=== PATIENT | male | born 1990 | race Caucasian/White ===

== ENCOUNTER 2016-04-08 13:32 | Emergency (ER) | payer OTHER ==
[2016-04-08 13:38] VITALS: RESP 16; TEMP 97.9
[2016-04-08] MEDS ORDERED: NS 1,000 ML IV ONE (13:55)
[2016-04-08] MEDS ORDERED: ONDANSETRON 4 MG/2 ML VIAL IVP ONE (13:55)
--- NOTE | 2016-04-08 13:57 | EDPHY ---
H & P Stated Complaint: epigastric pain/nausea/fever Time Seen by Provider: 04/08/16 13:50 HPI/ROS: CHIEF COMPLAINT: Epigastric and right upper quadrant abdominal pain since this morning HISTORY OF PRESENT ILLNESS: 25-year-old male otherwise healthy no history of chronic abdominal pathology, abdominal surgeries, complaining epigastric, right upper quadrant abdominal pain, nausea without vomiting since this morning. No bowel movement yet today. Atraumatic. No rash. No heavy alcohol use this weekend (today is Friday). No radiation of pain. No dyspnea. No chest pain. No melena or hematochezia REVIEW OF SYSTEMS: A ten point review of systems was performed and is negative with the exception of the items mentioned in the HPI PAST MEDICAL & SURGICAL HISTORY: No pertinent medical or surgical history SOCIAL HISTORY: small amount of whiskey this weekend PHYSICAL EXAM (Prior to examination, patient consented to physical exam, hands were washed and my usual and customary physical exam procedures followed) 1) GENERAL: Well-developed, well-nourished, alert and oriented. Appears nontoxic 2) HEAD: Normocephalic, atraumatic 3) HEENT: Pupils equal, round, reactive to light bilaterally. Sclera anicteric. Nasopharynx, oropharynx, clear, no lesions. Moist mucous membranes 4) NECK: Full range of motion, no meningeal signs. 5) LUNGS: Clear auscultation bilaterally, no wheezes, no rhonchi, no retractions. 6) HEART: Regular rate and rhythm, no murmur, no heave, no gallop. 7) ABDOMEN: guarding epigastrium, tender to palpation epigastrium and right upper quadrant with positive Hou's, negative McBurney's,negative Rovsing's, negative peritoneal sign, 8) MUSCULOSKELETAL: Moving all extremities, no focal areas of tenderness, no obvious trauma. No peripheral edema or discoloration. 9) BACK: No CVA tenderness, no midline vertebral tenderness, no fluctuance, no step-off, no obvious trauma, no visual or palpable abnormality. 10) SKIN: [No rash, no petechiae. DIFFERENTIAL DIAGNOSIS: In no particular order, including but not limited to biliary colic, cholecystitis, peptic ulcer disease, pancreatitis, and gastroenteritis. This is a partial list of diagnoses considered. These considerations are based on history, physical exam, past history and reassessment. - Personal History Current Tetanus/Diphtheria Vaccine: No - Medical/Surgical History Hx Asthma: No Hx Chronic Respiratory Disease: No Hx Diabetes: No Hx Cardiac Disease: No Hx Renal Disease: No Hx Cirrhosis: No Hx Alcoholism: No Hx HIV/AIDS: No Hx Splenectomy or Spleen Trauma: No Other PMH: r shoulder surgery - Social History Smoking Status: Never smoked Constitutional: Initial Vital Signs Temperature (C) 36.6 C 04/08/16 13:36 Heart Rate 84 04/08/16 13:36 Respiratory Rate 16 04/08/16 13:36 Blood Pressure 139/72 H 04/08/16 13:36 O2 Sat (%) 94 04/08/16 13:36 O2 Delivery Mode Room Air Allergies/Adverse Reactions: No Known Allergies Allergy (Unverified 04/08/16 13:35) Home Medications: Medication Instructions Recorded Adderall 10 MG (*) 04/08/16 Ondansetron Odt [Zofran Odt] 4 mg PO Q4PRN PRN #10 tab 04/08/16 Pantoprazole Sodium [Protonix 40mg 40 mg PO DAILY #30 tab 04/08/16 (RX)] Medical Decision Making - Diagnostics Imaging: Right Upper Quadrant Abdominal Sonogram History: Possible gallstones, RUQ /epigastric pain Findings: There are no gallstones, gallbladder wall thickening or pericholecystic fluid. The liver , right kidney and common duct are normal. The pancreas is obscured by bowel gas. There is no ascites. The visualized aorta and IVC are normal. Impression: Normal gallbladder. Results discussed with HERMINIA Hassan. Dictated By: Arvind Walker MD Contrast Enhanced CT Scan of the Abdomen and Pelvis Clinical History: 25-year-old male complaining of epigastric and right upper quadrant abdominal pain initially and now complaining of mid-abdominal and right lower quadrant pain, and noted to have some nausea and a fever. Rule out appendicitis. Technique: No oral contrast was administered. After the uncomplicated intravenous administration of 90 mL of Isovue 300, a multidetector helical CT scan was obtained from the lung bases inferiorly through the proximal femora, with images reformatted at 5.00 and 1.25 mm increments, and reviewed at a variety of window and level settings. Parasagittal and paracoronal reconstructed images are reviewed on the workstation. The DFOV is 40.0 cm. Dose reduction techniques were utilized. Comparison Study: Sonography limited to the right upper quadrant of the abdomen , at 2:45 PM today. Findings: Contrast-Enhanced CT Scan of the Abdomen: The lung bases are clear. The visualized cardiac chambers and pericardium are unremarkable. The liver, gallbladder, bile ducts, pancreas, adrenal glands, and the kidneys are normal in appearance. The spleen is mildly enlarged , measuring 13.8 x 5.0 x 10.6 cm. The aorta tapers normally, and the IVC is normal in caliber. There is no ascites or free air. There is intraluminal fluid noted throughout the jejunum and into the proximal ileum ( query mild enteritis), and there is some "fecalization" of the distal small bowel, suggestive of slow transit. The CT appearance of large bowel is unremarkable. The retrocecal appendix is identified anterior to the right psoas muscle on series 3, images 197-221, and is normal. Contrast-Enhanced CT Scan of the Pelvis: There are no masses, free fluid, or free air. The bladder has a normal contour. There is normal enhancement of the vasculature. The soft tissues are normal in appearance. The prostate gland and seminal vesicles are normal. Skeletal System: Normal. Impression: 1. Mild splenomegaly. 2. Query mild small bowel enteritis. 3. Normal CT appearance of the appendix. Results were discussed with Elijah Navarro PA-C. A Downtime test result has been communicated via the [facility] Critical Result system on 16:55, Message ID [id number]. Dictated By: Joshua Mejia MD Images reviewed by myself ED Course/Re-evaluation: 4:09 p.m.: Re-evaluation. Complaining of continued pain in the epigastrium. 540 p.m. Re-evaluation, discussed his imaging results. He is feeling improvement in symptoms. He has normal appearing appendix. He is noted to have mild splenomegaly with a positive Monospot. I do not think that further emergent intervention or evaluation indicated for his splenomegaly however I did recommend follow up with GI and his primary care provider and also recommend he avoid contact activities and sports. Also discussed mononucleosis precautions. Doubt acute surgical abdominal pathology. Doubt Acute pancreatitis. Doubt acute cholecystitis. Doubt Acute appendicitis. Doubt bowel obstruction. - Data Points Laboratory Results: Laboratory Results 04/08/16 14:05 04/08/16 14:05 04/08/16 04/08/16 04/08/16 14:05 14:05 14:05 WBC 7.33 10^3/uL 10^3/uL (3.80-9.50) RBC 5.29 10^6/uL 10^6/uL (4.40-6.38) Hgb 16.3 g/dL g/dL (13.7-17.5) Hct 45.6 % % (40.0-51.0) MCV 86.2 fL fL (81.5-99.8) MCH 30.8 pg pg (27.9-34.1) MCHC 35.7 g/dL g/dL (32.4-36.7) RDW 12.0 % % (11.5-15.2) Plt Count 202 10^3/uL 10^3/uL (150-400) MPV 10.3 fL fL (8.7-11.7) Neut % (Auto) 65.3 % % (39.3-74.2) Lymph % (Auto) 19.0 % % (15.0-45.0) [place] % (Auto) 14.3 % H % (4.5-13.0) Eos % (Auto) 0.8 % % (0.6-7.6) Baso % (Auto) 0.3 % % (0.3-1.7) Nucleat RBC Rel Count 0.0 % % (0.0-0.2) Absolute Neuts (auto) 4.79 10^3/uL 10^3/uL (1.70-6.50) Absolute Lymphs (auto) 1.39 10^3/uL 10^3/uL (1.00-3.00) Absolute Monos (auto) 1.05 10^3/uL H 10^3/uL (0.30-0.80) Absolute Eos (auto) 0.06 10^3/uL 10^3/uL (0.03-0.40) Absolute Basos (auto) 0.02 10^3/uL 10^3/uL (0.02-0.10) Absolute Nucleated RBC 0.00 10^3/uL 10^3/uL (0-0.01) Immature Gran % 0.3 % % (0.0-1.1) Immature Gran # 0.02 10^3/uL 10^3/uL (0.00-0.10) Sodium 139 mEq/L mEq/L (134-144) Potassium 4.1 mEq/L mEq/L (3.5-5.2) Chloride 100 mEq/L mEq/L (97-110) Carbon Dioxide 26 mEq/l mEq/l (22-31) Anion Gap 13 mEq/L mEq/L (8-16) BUN 13 mg/dL mg/dL (7-23) Creatinine 0.9 mg/dL mg/dL (0.7-1.3) Estimated GFR > 60 Glucose 79 mg/dL mg/dL (70-100) Calcium 9.9 mg/dL mg/dL (8.5-10.4) Total Bilirubin 0.9 mg/dL mg/dL (0.1-1.4) Conjugated Bilirubin 0.3 mg/dL mg/dL (0.0-0.5) Unconjugated Bilirubin 0.6 mg/dL mg/dL (0.0-1.1) AST 84 IU/L H IU/L (17-59) ALT 60 IU/L IU/L (21-72) Alkaline Phosphatase 109 IU/L IU/L (38-126) Total Protein 8.0 g/dL g/dL (6.3-8.2) Albumin 4.7 g/dL g/dL (3.5-5.0) Lipase 64.0 IU/L IU/L (23-300) Monoscreen POSITIVE H (NEGATIVE) Medications Given: Discontinued Medications Fentanyl (Sublimaze) 75 mcg IVP EDNOW ONE Stop: 04/08/16 16:10 Last Admin: 04/08/16 16:21 Dose: 75 mcg Sodium Chloride (Ns) 1,000 mls @ 0 mls/hr IV ONCE ONE PRN Reason: Wide Open Stop: 04/08/16 13:56 Last Admin: 04/08/16 14:09 Dose: 1,000 mls Ketorolac Tromethamine (Toradol) 30 mg IVP EDNOW ONE Stop: 04/08/16 16:10 Last Admin: 04/08/16 16:21 Dose: 30 mg Miscellaneous Medication (Gi Cocktail) 45 ml PO EDNOW ONE Stop: 04/08/16 15:22 Last Admin: 04/08/16 15:25 Dose: 45 ml Ondansetron HCl (Zofran) 4 mg IVP EDNOW ONE Stop: 04/08/16 13:56 Last Admin: 04/08/16 14:09 Dose: 4 mg Departure - Departure Disposition: Home, Routine, Self-Care Clinical Impression: Splenomegaly Abdominal pain Qualifiers: Abdominal location: epigastric Qualified Code(s): R10.13 - Epigastric pain Condition: Good Instructions: Abdominal Pain (ED) Additional Instructions: Seek immediate medical attention if you develop new or worsening symptoms, if you develop fevers, chills, inability to tolerate oral intake or any other symptoms that concerns you. If your abdominal pain continues in 24 hours return to the ER Referrals: Marcelino Linton MD [Medical Doctor] - 5-7 days, call for appt. Prescriptions: Ondansetron Odt [Zofran Odt] 4 mg PO Q4PRN PRN #10 tab PRN Reason: Nausea Pantoprazole Sodium [Protonix 40mg (RX)] 40 mg PO DAILY #30 tab
[2016-04-08 14:24] LABS: % IMMATURE GRANULYOCYTES 0.3 % (0.0-1.1); ABSOLUTE IMMATURE GRANULOCYTES 0.02 10^3/uL (0.00-0.10); ADD DIFF? NO; ADD MORPH? NO; ADD SCAN? NO; ATYPICAL LYMPHOCYTE FLAG 40 (0-99); FRAGMENT RBC FLAG 0 (0-99); HEMATOCRIT 45.6 % (40.0-51.0); HEMOGLOBIN 16.3 g/dL (13.7-17.5); LEFT SHIFT FLG 0 (0-99); LIPEMIA HEMOLYSIS FLAG 90 (0-99); MEAN CELL HEMOGLOBIN 30.8 pg (27.9-34.1); MEAN CELL HEMOGLOBIN CONCENTR. 35.7 g/dL (32.4-36.7); MEAN CELL VOLUME 86.2 fL (81.5-99.8); MEAN PLATELET VOLUME 10.3 fL (8.7-11.7); PLATELET CLUMPS FLAG 10 (0-99); PLATELET COUNT 202 10^3/uL (150-400); RED BLOOD CELL COUNT 5.29 10^6/uL (4.40-6.38)
[2016-04-08 15:03] LABS: ALANINE AMINOTRANSFERASE 60 IU/L (21-72); ALBUMIN 4.7 g/dL (3.5-5.0); ALKALINE PHOSPHATASE 109 IU/L (38-126); ANION GAP 13 mEq/L (8-16); ASPARTATE AMINOTRANSFERASE 84 IU/L (17-59); BILIRUBIN,TOTAL 0.9 mg/dL (0.1-1.4); BILIRUBIN-CONJUGATED 0.3 mg/dL (0.0-0.5); BILIRUBIN-UNCONJUGATED 0.6 mg/dL (0.0-1.1); CALCIUM 9.9 mg/dL (8.5-10.4); CARBON DIOXIDE 26 mEq/l (22-31); CHLORIDE 100 mEq/L (97-110); CREATININE 0.9 mg/dL (0.7-1.3); GLOMERULAR FILTRATION RATE > 60; GLUCOSE 79 mg/dL (70-100); POTASSIUM 4.1 mEq/L (3.5-5.2); SODIUM 139 mEq/L (134-144)
[2016-04-08] MEDS ORDERED: MAALOX/LIDO/HYOSC GI COCKTAIL 55 ML BOTTLE PO ONE (15:21)
[2016-04-08] MEDS ORDERED: fentaNYL 100 MCG/2 ML INJ IVP ONE (16:09)
[2016-04-08] MEDS ORDERED: KETOROLAC 30 MG/1 ML SDV IVP ONE (16:09)
[2016-04-08] MEDS ORDERED: IOPAMIDOL (ISOVUE-300) 100 ML BTL IV ONE (16:18)
[2016-04-08 17:52] VITALS: BP 122/61; PULSE 88; O2SAT 97
== END 2016-04-08 17:52 | disposition home or self-care (01) ==
DX: R16.1 Splenomegaly, not elsewhere classified (principal)
CPT/HCPCS: 96374; J1885; J2405; J3010; Q9967

== ENCOUNTER 2016-04-10 14:48 | Emergency (ER) | payer OTHER ==
--- NOTE | 2016-04-10 15:08 | EDPHY ---
H & P Stated Complaint: epigastric pain/seen 2 days ago/rx protonix/hasn't filled rx yet HPI/ROS: HPI CHIEF COMPLAINT: Sharp stabbing epigastric abdominal pain HISTORY OF PRESENT ILLNESS: This patient very pleasant 25-year-old male, seen here on Friday for epigastric abdominal pain sharp in nature had a ultrasound and CT scan and blood work at that time that only showed mild splenomegaly. Patient presents back to the emergency room with epigastric sharp stabbing pain. Patient tells me that the pain is located in the epigastric region sharp stabbing constant since 7:00 a.m. Friday morning. Patient denies black tarry stools or vomiting blood. He states the pain is exquisitely worse after eating and drinking he states when he takes a drink of water he gets severe epigastric sharp stabbing pain. At times it radiates directly to his back. He has not had any vomiting. He denies feeling nauseous, denies chest pain or shortness of breath, the pain is not worse when he takes deep breath in. Past Medical History: Denies any significant medical history Past Surgical History:Shoulder surgery Social History: denies daily use of drugs alcohol tobacco products Family History: Noncontributory ROS REVIEW OF SYSTEMS: A comprehensive 10 point review of systems is otherwise negative aside from elements mentioned in the history of present illness. Exam Constitutional triage nursing summary reviewed, vital signs reviewed, awake/ alert. Eyes normal conjunctivae and sclera, EOMI, PERRLA. HENT normal inspection, atraumatic, moist mucus membranes, no epistaxis, neck supple/ no meningismus, no raccoon eyes. Respiratory clear to auscultation bilaterally, normal breath sounds, no respiratory distress, no wheezing. Cardiovascular rate normal, regular rhythm, no murmur, no edema, distal pulses normal. Gastrointestinal soft, mild tenderness palpation epigastric and right upper quadrant , no rebound, no guarding, normal bowel sounds, no distension, no pulsatile mass. Genitourinary no CVA tenderness. Musculoskeletal no midline vertebral tenderness, full range of motion, no calf swelling, no tenderness of extremities, no meningismus, good pulses, neurovascularly intact. Skin pink, warm, & dry, no rash, skin atraumatic. Neurologic awake, alert and oriented x 3, AAOx3, moves all 4 extremities equally, motor intact, sensory intact, CN II-XII intact, normal cerebellar, normal vision, normal speech. Psychiatric normal mood/affect. Heme/Lymph/Immune no lymphadenopathy. Differential Diagnosis: includes but is not limited to in a particular order, peptic ulcer disease, per peptic ulcer, gallbladder disease, pancreatitis, esophagitis, pancreatitis, gastritis, referred pain from acute lower abdominal process. Medical Decision Making:This patient appears well here nontoxic does have tenderness to palpation epigastric and right upper quadrant, denies sharp stabbing pain epigastric radiating to the back. Will start off with GI cocktail IV Protonix will have an upper a chest x-ray to make sure there is no free air under the diaphragm IV hydration and blood work and re-evaluate him. Re-evaluation: ED x-ray chest one view upright: negative for acute cardiopulmonary disease. No free air underneath the diaphragm visualized. 1622: Re-examination at this time patient: Patient is still having ongoing epigastric pain sharp stabbing. He tells me the GI cocktail did not improve his pain nor did the IV Pepcid. He finished 2 L fluid I have written him another L fluid will perform a CT scan abdomen pelvis with IV contrast to evaluate for further significant epigastric abdominal pain specifically perfect ulcer. I have also ordered him IV Dilaudid IV Zofran for pain control. Time of re-evaluation: 165 The patient is resting comfortably here, patient feels much better after IV Dilaudid. Patient is back from CT scan at this time. CT scan of the abdomen pelvis with IV contrast The results of the study are shows nothing acute specifically no evidence of free air, per ulcer, duodenitis or significant inflammation epigastric right upper quadrant region. Mild splenomegaly.. The study was read by Dr. Harp. I viewed the images myself on the PACS system. 1722:Time of re-evaluation: The patient is resting comfortably here, this time patient is resting comfortably no acute distress. Re-examination abdomen is soft nontender no guarding or peritoneal signs patient is not vomiting p.o. challenge well without difficulty he feels comfortable going home. CT scan and blood work reviewed shows nothing acute. I do feel that this patient's symptoms are most likely consistent with an ulcer an H pylori possibly. I do recommend he follows up with Gastroenterology. He has not got his Protonix prescription filled I do recommend that he get this filled he stays away from spicy fatty greasy foods. I went over this with him. I also went over strict return precautions he understands to return to the emergency room if develops worsening abdominal pain, fever, vomiting. Blood in his stool doctor in stools or vomit blood. He should follow up with Gastroenterology for EGD. Most likely has a ulcer. Take Protonix. I will give him a limited prescription for Zofran and [place]. Source: Patient - Personal History Current Tetanus/Diphtheria Vaccine: No - Medical/Surgical History Hx Asthma: No Hx Chronic Respiratory Disease: No Hx Diabetes: No Hx Cardiac Disease: No Hx Renal Disease: No Hx Cirrhosis: No Hx Alcoholism: No Hx HIV/AIDS: No Hx Splenectomy or Spleen Trauma: No Other PMH: r shoulder surgery - Social History Smoking Status: Never smoked Constitutional: Initial Vital Signs Temperature (C) 36.6 C 04/10/16 14:51 Heart Rate 76 04/10/16 14:51 Respiratory Rate 18 04/10/16 14:51 Blood Pressure 124/77 H 04/10/16 14:51 O2 Sat (%) 96 04/10/16 14:51 O2 Delivery Mode Room Air O2 (L/minute) 2 Allergies/Adverse Reactions: No Known Allergies Allergy (Verified 04/10/16 14:50) Home Medications: Medication Instructions Recorded Adderall 10 MG (*) 04/08/16 Ondansetron Odt [Zofran Odt] 4 mg PO Q4PRN PRN #10 tab 04/08/16 Pantoprazole Sodium [Protonix 40mg 40 mg PO DAILY #30 tab 04/08/16 (RX)] Hydrocodone/APAP 5/325 [[place] 1 - 2 tab PO Q4H PRN #10 tab 04/10/16 5/325] Ondansetron HCl [Zofran] 4 mg PO Q4-6PRN PRN #10 tablet 04/10/16 Medical Decision Making - Data Points Laboratory Results: Laboratory Results 04/10/16 15:42 04/10/16 15:42 04/10/16 04/10/16 15:42 15:42 WBC 6.93 10^3/uL 10^3/uL (3.80-9.50) RBC 4.88 10^6/uL 10^6/uL (4.40-6.38) Hgb 14.8 g/dL g/dL (13.7-17.5) Hct 41.9 % % (40.0-51.0) MCV 85.9 fL fL (81.5-99.8) MCH 30.3 pg pg (27.9-34.1) MCHC 35.3 g/dL g/dL (32.4-36.7) RDW 11.9 % % (11.5-15.2) Plt Count 207 10^3/uL 10^3/uL (150-400) MPV 10.3 fL fL (8.7-11.7) Neut % (Auto) 67.8 % % (39.3-74.2) Lymph % (Auto) 18.8 % % (15.0-45.0) [place] % (Auto) 11.4 % % (4.5-13.0) Eos % (Auto) 1.4 % % (0.6-7.6) Baso % (Auto) 0.3 % % (0.3-1.7) Nucleat RBC Rel Count 0.0 % % (0.0-0.2) Absolute Neuts (auto) 4.70 10^3/uL 10^3/uL (1.70-6.50) Absolute Lymphs (auto) 1.30 10^3/uL 10^3/uL (1.00-3.00) Absolute Monos (auto) 0.79 10^3/uL 10^3/uL (0.30-0.80) Absolute Eos (auto) 0.10 10^3/uL 10^3/uL (0.03-0.40) Absolute Basos (auto) 0.02 10^3/uL 10^3/uL (0.02-0.10) Absolute Nucleated RBC 0.00 10^3/uL 10^3/uL (0-0.01) Immature Gran % 0.3 % % (0.0-1.1) Immature Gran # 0.02 10^3/uL 10^3/uL (0.00-0.10) Sodium 141 mEq/L mEq/L (134-144) Potassium 4.0 mEq/L mEq/L (3.5-5.2) Chloride 103 mEq/L mEq/L (97-110) Carbon Dioxide 27 mEq/l mEq/l (22-31) Anion Gap 11 mEq/L mEq/L (8-16) BUN 14 mg/dL mg/dL (7-23) Creatinine 1.1 mg/dL mg/dL (0.7-1.3) Estimated GFR > 60 Glucose 90 mg/dL mg/dL (70-100) Calcium 9.5 mg/dL mg/dL (8.5-10.4) Total Bilirubin 0.8 mg/dL mg/dL (0.1-1.4) Conjugated Bilirubin 0.4 mg/dL mg/dL (0.0-0.5) Unconjugated Bilirubin 0.4 mg/dL mg/dL (0.0-1.1) AST 47 IU/L IU/L (17-59) ALT 53 IU/L IU/L (21-72) Alkaline Phosphatase 103 IU/L IU/L (38-126) Total Protein 7.2 g/dL g/dL (6.3-8.2) Albumin 4.2 g/dL g/dL (3.5-5.0) Lipase 92.0 IU/L IU/L (23-300) Medications Given: Discontinued Medications Hydromorphone HCl (Dilaudid) 1 mg IVP EDNOW ONE Stop: 04/10/16 16:22 Last Admin: 04/10/16 16:30 Dose: 1 mg Sodium Chloride (Ns) 1,000 mls @ 0 mls/hr IV ONCE ONE PRN Reason: Wide Open Stop: 04/10/16 15:16 Last Admin: 04/10/16 15:40 Dose: 1,000 mls Famotidine/Sodium Chloride (Pepcid 20 Mg (Premix)) 50 mls @ 200 mls/hr IV EDNOW ONE Stop: 04/10/16 15:29 Last Admin: 04/10/16 15:45 Dose: 50 mls Sodium Chloride (Ns) 1,000 mls @ 0 mls/hr IV ONCE ONE PRN Reason: Wide Open Stop: 04/10/16 16:22 Last Admin: 04/10/16 16:30 Dose: 1,000 mls Miscellaneous Medication (Gi Cocktail) 55 ml PO EDNOW ONE Stop: 04/10/16 15:16 Last Admin: 04/10/16 15:45 Dose: 55 ml Ondansetron HCl (Zofran) 4 mg IVP EDNOW ONE Stop: 04/10/16 16:22 Last Admin: 04/10/16 16:30 Dose: 4 mg Departure - Departure Disposition: Home, Routine, Self-Care Clinical Impression: Abdominal pain Qualifiers: Abdominal location: epigastric Qualified Code(s): R10.13 - Epigastric pain Condition: Good Instructions: Acute Abdominal Pain (ED), Gastritis (ED), Peptic Ulcer (ED) Additional Instructions: 1.Do not eat spicy fatty greasy foods. 2. advance your diet slowly clear liquids for 24 hours and very bland food. 3.Please take your Protonix as previously prescribed 4. I have given you a limited supply of nausea medicine called Zofran, and a limited supply of [place] which is a narcotic pain medicine this can make her sleepy do not drive or drink while taking this medication. Referrals: NONE *PRIMARY CARE P,. [Primary Care Provider] - As per Instructions Prescriptions: Hydrocodone/APAP 5/325 [[place] 5/325] 1 - 2 tab PO Q4H PRN #10 tab PRN Reason: Pain, Moderate Ondansetron HCl [Zofran] 4 mg PO Q4-6PRN PRN #10 tablet PRN Reason: Nausea/Vomiting, Use 1st
[2016-04-10] MEDS ORDERED: MAALOX/LIDO/HYOSC GI COCKTAIL 55 ML BOTTLE PO ONE (15:15)
[2016-04-10] MEDS ORDERED: FAMOTIDINE 20 MG/NACL 50 ML IV ONE (15:15)
[2016-04-10] MEDS ORDERED: NS 1,000 ML IV ONE ×2 (15:15→16:21)
[2016-04-10] MEDS ORDERED: IOPAMIDOL (ISOVUE-300) 100 ML BTL IV ONE (15:30)
[2016-04-10 16:00] LABS: % IMMATURE GRANULYOCYTES 0.3 % (0.0-1.1); ABSOLUTE IMMATURE GRANULOCYTES 0.02 10^3/uL (0.00-0.10); ADD DIFF? NO; ADD MORPH? NO; ADD SCAN? NO; ATYPICAL LYMPHOCYTE FLAG 50 (0-99); FRAGMENT RBC FLAG 0 (0-99); HEMATOCRIT 41.9 % (40.0-51.0); HEMOGLOBIN 14.8 g/dL (13.7-17.5); LEFT SHIFT FLG 0 (0-99); LIPEMIA HEMOLYSIS FLAG 90 (0-99); MEAN CELL HEMOGLOBIN 30.3 pg (27.9-34.1); MEAN CELL HEMOGLOBIN CONCENTR. 35.3 g/dL (32.4-36.7); MEAN CELL VOLUME 85.9 fL (81.5-99.8); MEAN PLATELET VOLUME 10.3 fL (8.7-11.7); PLATELET CLUMPS FLAG 0 (0-99); PLATELET COUNT 207 10^3/uL (150-400); RED BLOOD CELL COUNT 4.88 10^6/uL (4.40-6.38); RED CELL DISTRIBUTION WIDTH 11.9 % (11.5-15.2)
[2016-04-10 16:05] LABS: ANION GAP 11 mEq/L (8-16); CARBON DIOXIDE 27 mEq/l (22-31); CHLORIDE 103 mEq/L (97-110); CREATININE 1.1 mg/dL (0.7-1.3); GLUCOSE 90 mg/dL (70-100); SODIUM 141 mEq/L (134-144)
[2016-04-10 16:06] LABS: ALANINE AMINOTRANSFERASE 53 IU/L (21-72); ALBUMIN 4.2 g/dL (3.5-5.0); ALKALINE PHOSPHATASE 103 IU/L (38-126); ASPARTATE AMINOTRANSFERASE 47 IU/L (17-59); BILIRUBIN,TOTAL 0.8 mg/dL (0.1-1.4); BILIRUBIN-CONJUGATED 0.4 mg/dL (0.0-0.5); BILIRUBIN-UNCONJUGATED 0.4 mg/dL (0.0-1.1); CALCIUM 9.5 mg/dL (8.5-10.4); GLOMERULAR FILTRATION RATE > 60; TOTAL PROTEIN 7.2 g/dL (6.3-8.2)
[2016-04-10] MEDS ORDERED: ONDANSETRON 4 MG/2 ML VIAL IVP ONE (16:21)
[2016-04-10] MEDS ORDERED: HYDROmorphONE/DILAUDID 1 MG/ML SYR IVP ONE (16:21)
[2016-04-10 17:37] VITALS: BP 141/80; PULSE 68; RESP 16; TEMP 98.2; O2SAT 96
== END 2016-04-10 17:36 | disposition home or self-care (01) ==
DX: R10.13 Epigastric pain (principal)
CPT/HCPCS: 96374; J1170; J2405; Q9967